=== PATIENT | female | born 1970 | race Two or more races ===

== ENCOUNTER 2020-04-09 15:56 | Inpatient (IN) | payer OTHER ==
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
[2020-04-09] MEDS ORDERED: ONDANSETRON *ODT* 4 MG TABLET SL PRN (17:50)
[2020-04-09] MEDS ORDERED: MAGNESIUM CITRATE 300 ML BOTTLE PO PRN (17:50)
[2020-04-09] MEDS ORDERED: MAGNESIUM HYDROX 2400MG/30ML ORAL SUSPENSION 30 ML CUP PO PRN (17:50)
[2020-04-09] MEDS ORDERED: MENTHOL/PHENOL 1 EACH UD MM PRN (17:50)
[2020-04-09] MEDS ORDERED: ACETAMINOPHEN 325 MG TABLET (FP) PO PRN ×2 (17:50)
[2020-04-09] MEDS ORDERED: IBUPROFEN 400 MG TABLET (FP) PO PRN (17:50)
[2020-04-09] MEDS ORDERED: NICOTINE POLACRILEX 2 MG GUM BUC PRN (17:50)
[2020-04-09] MEDS ORDERED: MAG HYDROX/AL HYDROX/SIMETH 30 ML UNIT-DOSE CUP PO PRN (17:50)
[2020-04-09] MEDS ORDERED: chlordiazePOXIDE HCL 25 MG CAPSULE PO PRN (17:52)
[2020-04-09 18:00] VITALS: BMI 29.4
[2020-04-09] MEDS ORDERED: ALBUTEROL SO4 HFA INHALER IH PRN (18:00)
[2020-04-09] MEDS: chlordiazePOXIDE HCL 25 MG CAPSULE PO SCH ×2 (18:49→22:51)
[2020-04-09] MEDS: metFORMIN HCL 500 MG TABLET (FP) PO SCH (20:02)
[2020-04-09] MEDS: MELATONIN 5 MG TABLETS PO SCH (22:51)
[2020-04-09] MEDS: THIAMINE HCL 100 MG TABLET (FP) PO SCH (22:51)
[2020-04-09] MEDS: METHOCARBAMOL 500 MG TABLET PO PRN (22:51)
[2020-04-10] MEDS: metFORMIN HCL 500 MG TABLET (FP) PO SCH ×2 (06:46→16:57)
[2020-04-10] MEDS: chlordiazePOXIDE HCL 25 MG CAPSULE PO SCH ×4 (06:46→22:27)
--- NOTE | 2020-04-10 09:54 | EKG ---
Test Reason : Blood Pressure : / mmHG Vent. Rate : 066 BPM Atrial Rate : 066 BPM P-R Int : 104 ms QRS Dur : 074 ms QT Int : 396 ms P-R-T Axes : 077 056 057 degrees QTc Int : 415 ms SINUS RHYTHM WITH SHORT MS OTHERWISE NORMAL ECG NO PREVIOUS ECGS AVAILABLE Confirmed by WILMAR MORRISON, EFREN ([id number]) on 04/10/2020 9:53:55 AM Referred By: Confirmed By:EFREN URBAN MD
[2020-04-10] MEDS: PRENATAL VITAMINS W/ FOLIC ACID TABLET (FP) PO SCH (10:22)
[2020-04-10] MEDS: BISMUTH SUBSALICYLATE 524 MG/30 ML UD PO PRN ×2 (10:22→13:11)
[2020-04-10 11:05] LABS: ALBUMIN 2.9 g/dl (3.4-5.0); BILIRUBIN,TOTAL 0.6 mg/dL (0.2-1); BLOOD UREA NITROGEN 10.3 mg/dL (7-18); CALCIUM 8.6 mg/dL (8.5-10.1); CREATININE 0.7 mg/dL (0.55-1.3); POTASSIUM 3.6 mmol/L (3.5-5.1); TOT PROT 5.7 g/dl (6.4-8.2)
[2020-04-10 11:10] LABS: HEMATOCRIT 40.7 % (32.4-45.2); HEMOGLOBIN 13.4 GM/dL (10.7-15.3); MCH 32.8 pg (25.7-33.7); MCHC 32.9 g/dl (32.0-36.0); MEAN CELL VOLUME 99.9 fl (80-96); MEAN PLT VOLUME 9.5 fl (7.5-11.1); PLATELET COUNT 251 K/MM3 (134-434); RBC 4.08 M/mm3 (3.60-5.2); RDW 13.1 % (11.6-15.6); WHITE BLOOD COUNT 6.2 K/mm3 (4.0-10.0)
--- NOTE | 2020-04-10 11:59 | PN ---
S CIWA - CIWA Score Nausea/Vomitin Muscle Tremors: 2 Anxiety: 2 Agitation: 2 Paroxysmal Sweats: No Perspiration Orientation: 0-Oriented Tacttile Disturbances: 1-Very Mild Itch/Numbness Auditory Disturbances: 0-None Visual Disturbances: 0-None Headache: 2-Mild CIWA-Ar Total Score: 11 S Progress Note (SOAP) Subjective: alert,irritable,anxious,interrupted sleep,tremor,aching pain Objective: 04/10/20 17:19 Laboratory Last Values WBC 6.2 K/mm3 (4.0-10.0) 04/10/20 08:00 RBC 4.08 M/mm3 (3.60-5.2) 04/10/20 08:00 Hgb 13.4 GM/dL (10.7-15.3) 04/10/20 08:00 Hct 40.7 % (32.4-45.2) 04/10/20 08:00 MCV 99.9 fl (80-96) H 04/10/20 08:00 MCH 32.8 pg (25.7-33.7) 04/10/20 08:00 MCHC 32.9 g/dl (32.0-36.0) 04/10/20 08:00 RDW 13.1 % (11.6-15.6) 04/10/20 08:00 Plt Count 251 K/MM3 (134-434) D 04/10/20 08:00 MPV 9.5 fl (7.5-11.1) 04/10/20 08:00 Sodium 140 mmol/L (136-145) 04/10/20 08:00 Potassium 3.6 mmol/L (3.5-5.1) 04/10/20 08:00 Chloride 105 mmol/L (98-107) 04/10/20 08:00 Carbon Dioxide 31 mmol/L (21-32) 04/10/20 08:00 Anion Gap 4 MMOL/L (8-16) L 04/10/20 08:00 BUN 10.3 mg/dL (7-18) 04/10/20 08:00 Creatinine 0.7 mg/dL (0.55-1.3) 04/10/20 08:00 Est GFR (CKD-EPI)AfAm 116.27 04/10/20 08:00 Est GFR (CKD-EPI)NonAf 100.32 04/10/20 08:00 POC Glucometer 137 UNITS (80-120) 04/10/20 16:26 Random Glucose 154 mg/dL (74-106) H 04/10/20 08:00 Calcium 8.6 mg/dL (8.5-10.1) 04/10/20 08:00 Total Bilirubin 0.6 mg/dL (0.2-1) 04/10/20 08:00 AST 22 U/L (15-37) 04/10/20 08:00 ALT 21 U/L (13-61) 04/10/20 08:00 Alkaline Phosphatase 66 U/L (45-117) 04/10/20 08:00 Total Protein 5.7 g/dl (6.4-8.2) L 04/10/20 08:00 Albumin 2.9 g/dl (3.4-5.0) L 04/10/20 08:00 POC Urine HCG, Qual Negative 04/09/20 17:55 Syphilis Serology Non-reactive (NONREACTIVE) 04/10/20 08:00 Assessment: 04/10/20 17:20 withdrawal symptom Plan: continue detox libriumregimen,bm monitoring
[2020-04-10] MEDS ORDERED: PNEUMOC 13-VAL CONJ-DIP CRM/PF 0.5 ML DISP.SYRIN IM ONE (12:00)
--- NOTE | 2020-04-10 17:09 | CONSULT ---
[facility] Psychiatric Consult - Data Date of interview: 04/10/20 Admission source: [facility] Identifying data: Climatologist approached patient on several occasions but patient was difficult to awaken. Patient observed to be somnolent, breathing, and snoring loudly.
[2020-04-10] MEDS: THIAMINE HCL 100 MG TABLET (FP) PO SCH (22:27)
[2020-04-10] MEDS: MELATONIN 5 MG TABLETS PO SCH (22:27)
[2020-04-10] MEDS: METHOCARBAMOL 500 MG TABLET PO PRN (22:28)
[2020-04-11] MEDS: metFORMIN HCL 500 MG TABLET (FP) PO SCH ×2 (07:38→18:04)
[2020-04-11] MEDS: chlordiazePOXIDE HCL 25 MG CAPSULE PO SCH ×4 (07:40→22:45)
--- NOTE | 2020-04-11 09:28 | PN ---
[facility] CIWA - CIWA Score Nausea/Vomitin-Mild Nausea/No Vomiting Muscle Tremors: 1-None Visible, but [place] Anxiety: 1-Mildly Anxious Agitation: 0-Normal Activity Paroxysmal Sweats: 1-Minimal Palms Moist Orientation: 0-Oriented Tacttile Disturbances: 0-None Auditory Disturbances: 0-None Visual Disturbances: 0-None Headache: 0-None Present CIWA-Ar Total Score: 4 BHS Progress Note (SOAP) Subjective: Patient was examined by bedside. Patient complains of mild nausea and anxiety but otherwise feels well. Objective: 04/11/20 09:26 PE: General: No acute distress, alert and awake MSK: gait normal, pelvis stable, normal range of motion Skin: No lesions or abrasions skin color normal. MS: responds appropriately to questions, oriented x3, pleasant demeanor Last Vital Signs Temp Pulse Resp BP Pulse Ox 97.3 F L 65 18 112/64 100 04/11/20 08:53 04/11/20 08:53 04/11/20 08:53 04/11/20 08:53 04/11/20 08:53 CBC,CMP WBC 6.2 K/mm3 (4.0-10.0) 04/10/20 08:00 RBC 4.08 M/mm3 (3.60-5.2) 04/10/20 08:00 Hgb 13.4 GM/dL (10.7-15.3) 04/10/20 08:00 Hct 40.7 % (32.4-45.2) 04/10/20 08:00 MCV 99.9 fl (80-96) H 04/10/20 08:00 MCH 32.8 pg (25.7-33.7) 04/10/20 08:00 MCHC 32.9 g/dl (32.0-36.0) 04/10/20 08:00 RDW 13.1 % (11.6-15.6) 04/10/20 08:00 Plt Count 251 K/MM3 (134-434) D 04/10/20 08:00 MPV 9.5 fl (7.5-11.1) 04/10/20 08:00 Sodium 140 mmol/L (136-145) 04/10/20 08:00 Potassium 3.6 mmol/L (3.5-5.1) 04/10/20 08:00 Chloride 105 mmol/L (98-107) 04/10/20 08:00 Carbon Dioxide 31 mmol/L (21-32) 04/10/20 08:00 Anion Gap 4 MMOL/L (8-16) L 04/10/20 08:00 BUN 10.3 mg/dL (7-18) 04/10/20 08:00 Creatinine 0.7 mg/dL (0.55-1.3) 04/10/20 08:00 Est GFR (CKD-EPI)AfAm 116.27 04/10/20 08:00 Est GFR (CKD-EPI)NonAf 100.32 04/10/20 08:00 POC Glucometer 80 UNITS (80-120) 04/11/20 07:30 Random Glucose 154 mg/dL (74-106) H 04/10/20 08:00 Calcium 8.6 mg/dL (8.5-10.1) 04/10/20 08:00 Total Bilirubin 0.6 mg/dL (0.2-1) 04/10/20 08:00 AST 22 U/L (15-37) 04/10/20 08:00 ALT 21 U/L (13-61) 04/10/20 08:00 Alkaline Phosphatase 66 U/L (45-117) 04/10/20 08:00 Total Protein 5.7 g/dl (6.4-8.2) L 04/10/20 08:00 Albumin 2.9 g/dl (3.4-5.0) L 04/10/20 08:00 Current Medications Generic Name Dose Route Start Last Admin Trade Name Freq PRN Reason Stop Dose Admin Acetaminophen 650 mg 04/09/20 17:50 Tylenol - PO Q6H PRN PAIN LEVEL 4 - 6 Acetaminophen 650 mg 04/09/20 17:50 Tylenol - PO Q6H PRN FEVER Al Hydroxide/Mg Hydroxide 30 ml 04/09/20 17:50 Mylanta Oral Suspension - PO Q6H PRN DYSPEPSIA Albuterol Sulfate 2 puff 04/09/20 18:00 Ventolin Hfa Inhaler - IH Q4H PRN SHORTNESS OF BREATH Bismuth Subsalicylate 524 mg 04/09/20 17:50 04/10/20 13:11 Pepto-Bismol - PO 524 mg Q1H PRN Administration DIARRHEA Chlordiazepoxide HCl 25 mg 04/11/20 05:00 04/11/20 07:40 Librium - PO 04/11/20 23:01 Not Given [id number] PEYTON Chlordiazepoxide HCl 25 mg 04/09/20 17:52 Librium - PO 04/11/20 23:59 Q4H PRN WITHDRAWAL(CONT SUBST) Chlordiazepoxide HCl 10 mg 04/12/20 05:00 Librium - PO 04/12/20 23:01 [id number] PEYTON Chlordiazepoxide HCl 10 mg 04/13/20 05:00 Librium - PO 04/13/20 17:01 Q12H PEYTON Chlordiazepoxide HCl 10 mg 04/12/20 00:00 Librium - PO 04/13/20 00:00 Q4H PRN WITHDRAWAL(CONT SUBST) Chlordiazepoxide HCl 10 mg 04/14/20 05:00 Librium - PO 04/14/20 05:01 ONCE@0500 ONE Eucalyptus/Menthol/Phenol/Sorbitol 1 each 04/09/20 17:50 Cepastat Lozenge - MM 04/15/20 17:50 Q4H PRN SORE THROAT Hydroxyzine Pamoate 25 mg 04/09/20 17:50 Vistaril - PO 04/15/20 17:51 Q4H PRN ANXIETY Ibuprofen 400 mg 04/09/20 17:50 Motrin - PO Q6H PRN PAIN LEVEL 1 - 3 Magnesium Citrate 300 ml 04/09/20 17:50 Citroma - PO Q48H PRN CONSTIPATION Magnesium Hydroxide 30 ml 04/09/20 17:50 Milk Of Magnesia - PO PRN PRN CONSTIPATION Melatonin 5 mg 04/09/20 22:00 04/10/20 22:27 Melatonin PO 5 mg HS PEYTON Administration Metformin HCl 500 mg 04/09/20 19:45 04/11/20 07:38 Glucophage - PO 500 mg BIDAC PEYTON Administration Methocarbamol 500 mg 04/09/20 17:50 04/10/20 22:28 Robaxin - PO 04/15/20 17:50 500 mg Q6H PRN Administration MUSCLE SPASMS Nicotine Polacrilex 2 mg 04/09/20 17:50 Nicorette Gum - BUC Q2H PRN NICOTINE REPLACEMENT RX Ondansetron HCl 4 mg 04/09/20 17:50 Zofran Odt - SL Q8H PRN Nausea/Vomiting Multivit/Folic Acid/Iron 1 tab 04/10/20 10:00 04/10/20 10:22 Vitamins (Sjr) - PO 1 tab DAILY PEYTON Administration Thiamine HCl 100 mg 04/09/20 22:00 04/10/20 22:27 Vitamin B1 - PO 100 mg HS PEYTON Administration Discontinued Medications Generic Name Dose Route Start Last Admin Trade Name Freq PRN Reason Stop Dose Admin Chlordiazepoxide HCl 50 mg 04/09/20 17:00 04/10/20 22:27 Librium - PO 04/10/20 23:01 50 mg [id number] PEYTON Administration Pneumococcal 13-Valent Conj Vacc 0.5 ml 04/10/20 12:00 04/10/20 13:07 Prevnar 13 Syringe - IM 04/10/20 12:01 0.5 ml .ONCE ONE Administration Tuberculin PPD 5 units 04/09/20 17:50 04/09/20 18:52 Tubersol ([facility] Only) 5ml Vial ID 04/09/20 17:51 0.1 ml ONCE ONE Administration Assessment: 04/11/20 09:26 Patient is in detox due to alcohol, on day 1 on a librium protocol Plan: Plan: Continue librium protocol.
[2020-04-11] MEDS: PRENATAL VITAMINS W/ FOLIC ACID TABLET (FP) PO SCH (10:23)
[2020-04-11] MEDS: METHOCARBAMOL 500 MG TABLET PO PRN (10:25)
[2020-04-11] MEDS ORDERED: INSULIN (NOVOLOG) ASPART 100 UNITS/ML 10ML VIAL SQ ONE (17:24)
--- NOTE | 2020-04-11 17:29 | PN ---
S Progress Note Note: Patient's blood sugar is 341mg/dl. patient is asymptomatic Glucose Results-Entire Visit 04/10/20 08:00 Random Glucose 154 mg/dL H mg/dL (74-106) BGM Results Entire Visit 04/09/20 04/10/20 04/10/20 18:23 06:48 16:26 POC Glucometer 113 UNITS UNITS 115 UNITS UNITS 137 UNITS UNITS (80-120) (80-120) (80-120) 04/11/20 04/11/20 07:30 16:16 POC Glucometer 80 UNITS UNITS 341 UNITS UNITS (80-120) (80-120) Action: Insulin Novolog 6 units SQ ordered
[2020-04-11] MEDS ORDERED: INSULIN SLIDING SCALE (NOVOLOG) 1 VIAL SQ ONE (17:34)
[2020-04-11] MEDS: THIAMINE HCL 100 MG TABLET (FP) PO SCH (22:44)
[2020-04-11] MEDS: MELATONIN 5 MG TABLETS PO SCH (22:44)
[2020-04-12] MEDS ORDERED: chlordiazePOXIDE HCL 10 MG CAPSULE PO PRN
[2020-04-12] MEDS: chlordiazePOXIDE HCL 10 MG CAPSULE PO SCH ×4 (05:57→22:27)
[2020-04-12] MEDS: metFORMIN HCL 500 MG TABLET (FP) PO SCH ×2 (06:01→17:29)
[2020-04-12] MEDS: PRENATAL VITAMINS W/ FOLIC ACID TABLET (FP) PO SCH (10:51)
--- NOTE | 2020-04-12 11:51 | PN ---
S CIWA - CIWA Score Nausea/Vomitin-No Nausea/No Vomiting Muscle Tremors: None Anxiety: 2 Agitation: 0-Normal Activity Paroxysmal Sweats: 2 Orientation: 0-Oriented Tacttile Disturbances: 0-None Auditory Disturbances: 0-None Visual Disturbances: 0-None Headache: 2-Mild CIWA-Ar Total Score: 6 BHS Progress Note (SOAP) Subjective: c/o headache, sweats, and anxiety. Objective: 04/12/20 11:50 Vital Signs 04/12/20 04/12/20 06:37 08:35 Temperature 97.2 F L 98.1 F Pulse Rate 87 100 H Respiratory 16 16 Rate Blood Pressure 117/70 114/69 O2 Sat by Pulse 99 99 Oximetry (%) Laboratory Last Values WBC 6.2 K/mm3 (4.0-10.0) 04/10/20 08:00 RBC 4.08 M/mm3 (3.60-5.2) 04/10/20 08:00 Hgb 13.4 GM/dL (10.7-15.3) 04/10/20 08:00 Hct 40.7 % (32.4-45.2) 04/10/20 08:00 MCV 99.9 fl (80-96) H 04/10/20 08:00 MCH 32.8 pg (25.7-33.7) 04/10/20 08:00 MCHC 32.9 g/dl (32.0-36.0) 04/10/20 08:00 RDW 13.1 % (11.6-15.6) 04/10/20 08:00 Plt Count 251 K/MM3 (134-434) D 04/10/20 08:00 MPV 9.5 fl (7.5-11.1) 04/10/20 08:00 Sodium 140 mmol/L (136-145) 04/10/20 08:00 Potassium 3.6 mmol/L (3.5-5.1) 04/10/20 08:00 Chloride 105 mmol/L (98-107) 04/10/20 08:00 Carbon Dioxide 31 mmol/L (21-32) 04/10/20 08:00 Anion Gap 4 MMOL/L (8-16) L 04/10/20 08:00 BUN 10.3 mg/dL (7-18) 04/10/20 08:00 Creatinine 0.7 mg/dL (0.55-1.3) 04/10/20 08:00 Est GFR (CKD-EPI)AfAm 116.27 04/10/20 08:00 Est GFR (CKD-EPI)NonAf 100.32 04/10/20 08:00 POC Glucometer 115 UNITS (80-120) 04/12/20 05:56 Random Glucose 154 mg/dL (74-106) H 04/10/20 08:00 Calcium 8.6 mg/dL (8.5-10.1) 04/10/20 08:00 Total Bilirubin 0.6 mg/dL (0.2-1) 04/10/20 08:00 AST 22 U/L (15-37) 04/10/20 08:00 ALT 21 U/L (13-61) 04/10/20 08:00 Alkaline Phosphatase 66 U/L (45-117) 04/10/20 08:00 Total Protein 5.7 g/dl (6.4-8.2) L 04/10/20 08:00 Albumin 2.9 g/dl (3.4-5.0) L 04/10/20 08:00 POC Urine HCG, Qual Negative 04/09/20 17:55 Syphilis Serology Non-reactive (NONREACTIVE) 04/10/20 08:00 COVID-19 ([facility]) Not detected (Not Detected) 04/09/20 18:11 Labs noted. Assessment: 04/12/20 11:50 AOX3, in no acute respiratory distress. Full ROM, ambulating in the unit. Withdrawal symptoms. Plan: continue detox.
[2020-04-12] MEDS: MELATONIN 5 MG TABLETS PO SCH (22:27)
[2020-04-12] MEDS: THIAMINE HCL 100 MG TABLET (FP) PO SCH (22:27)
[2020-04-13] MEDS: chlordiazePOXIDE HCL 10 MG CAPSULE PO SCH ×2 (05:42→16:50)
[2020-04-13] MEDS: metFORMIN HCL 500 MG TABLET (FP) PO SCH ×2 (06:20→16:50)
--- NOTE | 2020-04-13 09:58 | PN ---
S CIWA - CIWA Score Nausea/Vomitin-No Nausea/No Vomiting Muscle Tremors: 1-None Visible, but [place] Anxiety: 1-Mildly Anxious Agitation: 0-Normal Activity Paroxysmal Sweats: No Perspiration Orientation: 0-Oriented Tacttile Disturbances: 0-None Auditory Disturbances: 0-None Visual Disturbances: 0-None Headache: 1-Very Mild CIWA-Ar Total Score: 3 BHS Progress Note (SOAP) Subjective: 49 years old female was admitted on 04/09/20 for alcohol withdrawal sx management treating with [facility] long history of diabetes treated with metform 500mg po bid ac feels better today discussing aftercare with staff ms chaudhari [facility] is fine with her Objective: 04/13/20 09:59 Vital Signs - 24 hr 04/12/20 04/12/20 04/12/20 13:30 16:50 20:48 Temperature 96.8 F L 97.5 F L 97.5 F L Pulse Rate 84 83 79 Respiratory 18 16 16 Rate Blood Pressure 106/59 L 119/71 117/70 O2 Sat by Pulse 98 98 Oximetry (%) 04/13/20 04/13/20 06:32 08:54 Temperature 96.9 F L 97.1 F L Pulse Rate 82 70 Respiratory 16 18 Rate Blood Pressure 118/71 105/61 O2 Sat by Pulse 99 99 Oximetry (%) Laboratory Tests 04/09/20 04/09/20 04/09/20 17:55 18:11 18:23 WBC RBC Hgb Hct MCV MCH MCHC RDW Plt Count MPV Sodium Potassium Chloride Carbon Dioxide Anion Gap BUN Creatinine Est GFR (CKD-EPI)AfAm Est GFR (CKD-EPI)NonAf POC Glucometer 113 Random Glucose Calcium Total Bilirubin AST ALT Alkaline Phosphatase Total Protein Albumin POC Urine HCG, Qual Negative Syphilis Serology COVID-19 (ZO) Not detected 04/10/20 04/10/20 04/10/20 06:48 08:00 08:00 WBC 6.2 RBC 4.08 Hgb 13.4 Hct 40.7 MCV 99.9 H MCH 32.8 MCHC 32.9 RDW 13.1 Plt Count 251 D MPV 9.5 Sodium Potassium Chloride Carbon Dioxide Anion Gap BUN Creatinine Est GFR (CKD-EPI)AfAm Est GFR (CKD-EPI)NonAf POC Glucometer 115 Random Glucose Calcium Total Bilirubin AST ALT Alkaline Phosphatase Total Protein Albumin POC Urine HCG, Qual Syphilis Serology Non-reactive COVID-19 (ZO) 04/10/20 04/10/20 04/11/20 08:00 16:26 07:30 WBC RBC Hgb Hct MCV MCH MCHC RDW Plt Count MPV Sodium 140 Potassium 3.6 Chloride 105 Carbon Dioxide 31 Anion Gap 4 L BUN 10.3 Creatinine 0.7 Est GFR (CKD-EPI)AfAm 116.27 Est GFR (CKD-EPI)NonAf 100.32 POC Glucometer 137 80 Random Glucose 154 H Calcium 8.6 Total Bilirubin 0.6 AST 22 ALT 21 Alkaline Phosphatase 66 Total Protein 5.7 L Albumin 2.9 L POC Urine HCG, Qual Syphilis Serology COVID-19 (ZO) 04/11/20 04/12/20 04/12/20 16:16 05:56 16:29 WBC RBC Hgb Hct MCV MCH MCHC RDW Plt Count MPV Sodium Potassium Chloride Carbon Dioxide Anion Gap BUN Creatinine Est GFR (CKD-EPI)AfAm Est GFR (CKD-EPI)NonAf POC Glucometer 341 115 170 Random Glucose Calcium Total Bilirubin AST ALT Alkaline Phosphatase Total Protein Albumin POC Urine HCG, Qual Syphilis Serology COVID-19 (ZO) 04/13/20 05:41 WBC RBC Hgb Hct MCV MCH MCHC RDW Plt Count MPV Sodium Potassium Chloride Carbon Dioxide Anion Gap BUN Creatinine Est GFR (CKD-EPI)AfAm Est GFR (CKD-EPI)NonAf POC Glucometer 139 Random Glucose Calcium Total Bilirubin AST ALT Alkaline Phosphatase Total Protein Albumin POC Urine HCG, Qual Syphilis Serology COVID-19 (ZO) medical history of diabetes encourage weight loss with dietary regiment as part of diabetes management 04/13/20 10:02 Assessment: 04/13/20 10:03 alcohol withdrawal Plan: librium regiment
[2020-04-13] MEDS: PRENATAL VITAMINS W/ FOLIC ACID TABLET (FP) PO SCH (10:27)
[2020-04-13] MEDS: hydrOXYzine PAMOATE 25 MG CAPSULE (FP) PO PRN ×2 (16:51→22:03)
[2020-04-13] MEDS: THIAMINE HCL 100 MG TABLET (FP) PO SCH (22:03)
[2020-04-13] MEDS: MELATONIN 5 MG TABLETS PO SCH (22:03)
[2020-04-14] MEDS ORDERED: chlordiazePOXIDE HCL 10 MG CAPSULE PO ONE (05:00)
[2020-04-14] MEDS: metFORMIN HCL 500 MG TABLET (FP) PO SCH (05:59)
[2020-04-14 06:44] VITALS: TEMP 97.1
[2020-04-14] MEDS: PRENATAL VITAMINS W/ FOLIC ACID TABLET (FP) PO SCH (09:06)
[2020-04-14 09:21] VITALS: BP 106/64; PULSE 81
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
== END 2020-04-14 13:02 | disposition other institution (70) | DRG 774 ==
LOC: YASAS 15:56 → Y3N 18:06
PROVIDERS: ADMIT Allergy & Immunology; ATTEND Allergy & Immunology
PROC: HZ2ZZZZ Detoxification Services for Substance Abuse Treatment (ICD-10-PCS; principal; 2020-04-09)
DX: F10.230 Alcohol dependence with withdrawal, uncomplicated (principal); F14.20 Cocaine dependence, uncomplicated; F12.20 Cannabis dependence, uncomplicated; F17.210 Nicotine dependence, cigarettes, uncomplicated; F31.9 Bipolar disorder, unspecified; F19.24 Other psychoactive substance dependence with psychoactive substance-induced mood disorder; E11.9 Type 2 diabetes mellitus without complications; Z79.84 Long term (current) use of oral hypoglycemic drugs; J45.909 Unspecified asthma, uncomplicated; Z86.69 Personal history of other diseases of the nervous system and sense organs; Z91.5 Personal history of self-harm; Z91.013 Allergy to seafood
CPT/HCPCS: 36415; 80053; 81025; 82962; 85027; 86780; 90670; 93005; 93010; U0003

== ENCOUNTER 2020-04-14 13:06 | Inpatient (IN) | payer OTHER ==
[2020-04-14] MEDS ORDERED: MAGNESIUM CITRATE 300 ML BOTTLE PO PRN (14:19)
[2020-04-14] MEDS ORDERED: P-EPHED 60MG/TRIPROLIDI 2.5MG TABLET PO PRN (14:19)
[2020-04-14] MEDS ORDERED: LOPERAMIDE HCL 2 MG CAPSULE PO PRN (14:19)
[2020-04-14] MEDS ORDERED: guaiFENesin 200 MG/10 ML 10 ML UNIT-DOSE CUPS PO PRN (14:19)
[2020-04-14] MEDS ORDERED: MAGNESIUM HYDROX 2400MG/30ML ORAL SUSPENSION 30 ML CUP PO PRN (14:19)
[2020-04-14] MEDS ORDERED: NICOTINE POLACRILEX 2 MG GUM BUC PRN (14:19)
--- NOTE | 2020-04-14 14:19 | HP ---
[facility] Re[facility] Assess/Revision - Admission History Admitted to Rehab from: [facility] Date of Admission to Rehab: 04/14/20 - Vital signs Vital Signs: Vital Signs Period Temp Pulse Resp BP Sys/Pro Pulse Ox Last 24 Hr 97.1 F 80 18 108/69 98 - Findings Detox History & Physical reviewed: Yes Concur with findings: Yes Comments/Additional Findings: tranferred fromd detox to rehab admission as per protocol Inpatient Rehab Admission - Rehab Decision to Admit Inpatient rehab admission?: Yes - Initial Determination Are CD services needed?: Yes Free of communicable disease: Yes Not in need of hospitalization: Yes - Rehab Admission Criteria Previous failed treatment: Yes Poor recovery environment: Yes Comorbidities: Yes Lacks judgement: Yes Patient is meeting Inpatient Rehab admission criteria:: Yes
[2020-04-14] MEDS ORDERED: ALBUTEROL SO4 HFA INHALER IH PRN (14:23)
[2020-04-14] MEDS: metFORMIN HCL 500 MG TABLET (FP) PO SCH (17:07)
[2020-04-14] MEDS: THIAMINE HCL 100 MG TABLET (FP) PO SCH (21:36)
[2020-04-14] MEDS: MELATONIN 5 MG TABLETS PO SCH (21:37)
[2020-04-15] MEDS: metFORMIN HCL 500 MG TABLET (FP) PO SCH ×2 (06:51→16:40)
--- NOTE | 2020-04-15 09:00 | CONSULT ---
[facility] Psychiatric Consult - Data Date of interview: 04/15/20 Admission source: [facility] Identifying data: Patient is a 49 year old single female, mother of two, unemployed, domiciled, and is supported by SSI benefits. This is patient's first admission to rehab at [facility]. Patient admitted to for alcohol dependence. Substance Abuse History: Smoking Cessation. Smoking history: Current every day smoker. Have you smoked in the past 12 months: Yes. Aproximately how many cigarettes per day: 5. Hx Chewing Tobacco Use: No. Initiated information on smoking cessation: Yes. 'Breaking Loose' booklet given: 04/09/20. - Substances abused. Alcohol. Substance route: Oral. Frequency: Daily. Amount used: 5 pints of vodka. Age of first use: 10. Date of last use: 04/09/20. Crack. Substance route: Smoking. Frequency: Daily. Amount used: 500 $. Age of first use: 14. Date of last use: 04/08/20. Marijuana/Hashish. Substance route: Smoking. Frequency: Daily. Amount used: 1 BAG. Age of first use: 10. Date of last use: 04/07/20 Medical History: Asthma, diabetes Psychiatric History: Ms. Mercado first psychiatric contact was at 14 years of age after she was admitted to [facility] for onset disturbances of auditory hallucination and self injurious behavior via cutting on her left and right forearm. States that she was diagnosed with bipolar disorder, schizophrenia and treated with psychotropic medications. Ms. Mercado reports a history of multiple psychiatric hospitalizations including but not limited to [facility], [facility], [facility], and most recently at [facility] two months ago due to auditory hallucinations and self mutilation of cutting. Ms. Mercado states that she was prescribed Depakote 500mg BID + Risperdal (unsure of dose) + Trazodone 100mg HS + Seroquel 100mg HS. Ms. Mercado reports a chronic history of noncompliance to outpatient psychiatric treatment. States that she last took medications two months ago. History of one suicide attempt by cutting her neck at 16 years of age. At present patient denies auditory/ visual hallucination, suicidal/ homicidal ideation, however reports feeling sad. Physical/Sexual Abuse/Trauma History: Not discussed. Mental Status Exam - Mental Status Exam Alert and Oriented to: Time, Place, Person Cognitive Function: Good Patient Appearance: Well Groomed Mood: Withdrawn Affect: Mood Congruent Patient Behavior: Cooperative Speech Pattern: Appropriate Voice Loudness: Normal Thought Process: Intact, Goal Oriented Thought Disorder: Not Present Hallucinations: Denies Suicidal Ideation: Denies Homicidal Ideation: Denies Insight/Judgement: Poor Sleep: Fair Appetite: Fair Muscle strength/Tone: Normal Gait/Station: Normal Psychiatric Findings - Problem List ([place] 1, 2,3) (1) Cannabis dependence Status: Chronic (2) Alcohol dependence Status: Chronic (3) Cocaine dependence Status: Chronic (4) Bipolar disorder Status: Acute (5) Schizoaffective disorder Status: Suspected - Initial Treatment Plan Initial Treatment Plan: Psychoeducation provided. Detoxification in progress. Sales Support Rep called pharmacy on file, [facility] contacted at [phone]. As per pharmacy staff patient is not in the system. Patient informed of information provided by pharmacy and stated, " I'm not sure then which pharmacy that it was." Will order Risperdal 1mg BID + Depakote 250mg daily + 500mg HS + Trazodone 50mg HS. Benefits and side effects discussed. Verbal consent given.
[2020-04-15] MEDS: IBUPROFEN 400 MG TABLET (FP) PO PRN (10:26)
[2020-04-15] MEDS: NICOTINE 7 MG/24 HOURS TOPICAL PATCH TD SCH (10:26)
[2020-04-15] MEDS: PRENATAL VITAMINS W/ FOLIC ACID TABLET (FP) PO SCH (10:26)
[2020-04-15] MEDS: risperiDONE 1 MG TABLET PO SCH ×2 (10:26→21:29)
[2020-04-15] MEDS: DIVALPROEX SODIUM 250 MG TABLET E.C. PO SCH (11:34)
--- NOTE | 2020-04-15 16:59 | PN ---
S Progress Note Note: Pt is a 49 y/o female with a hx of LONA-alcohol,cocaine, marijuana admitted to rehab after completing detox on . PMHX : asthma , DM on Metformin Psych Hx: Bipolar d/o , depression PSHx : C-sx lmp 3 years ago Vital Signs - 24 hr 04/14/20 04/15/20 04/15/20 20:38 06:22 14:48 Temperature 97.3 F L Pulse Rate 64 Respiratory 20 Rate Blood Pressure 125/78 O2 Sat by Pulse 99 99 99 Oximetry (%) alert o x 3 nad oob ambulating with steady gait s/p detox Maintain safety increase po fluids
[2020-04-15] MEDS: THIAMINE HCL 100 MG TABLET (FP) PO SCH (21:29)
[2020-04-15] MEDS: MELATONIN 5 MG TABLETS PO SCH (21:30)
[2020-04-15] MEDS: DIVALPROEX SODIUM 500 MG TABLET E.C. PO SCH (21:31)
[2020-04-15] MEDS: traZODone HCL 50 MG TABLET (FP) PO SCH (21:31)
[2020-04-16] MEDS: IBUPROFEN 400 MG TABLET (FP) PO PRN (06:56)
[2020-04-16] MEDS: metFORMIN HCL 500 MG TABLET (FP) PO SCH ×2 (06:56→16:49)
[2020-04-16] MEDS: PRENATAL VITAMINS W/ FOLIC ACID TABLET (FP) PO SCH (10:28)
[2020-04-16] MEDS: risperiDONE 1 MG TABLET PO SCH ×2 (10:28→21:39)
[2020-04-16] MEDS: NICOTINE 7 MG/24 HOURS TOPICAL PATCH TD SCH (10:28)
[2020-04-16] MEDS: ACETAMINOPHEN 325 MG TABLET (FP) PO PRN (10:30)
[2020-04-16] MEDS: DIVALPROEX SODIUM 250 MG TABLET E.C. PO SCH (10:45)
[2020-04-16] MEDS: hydrOXYzine PAMOATE 25 MG CAPSULE (FP) PO PRN (16:01)
[2020-04-16] MEDS: THIAMINE HCL 100 MG TABLET (FP) PO SCH (21:38)
[2020-04-16] MEDS: DIVALPROEX SODIUM 500 MG TABLET E.C. PO SCH (21:38)
[2020-04-16] MEDS: traZODone HCL 50 MG TABLET (FP) PO SCH (21:38)
[2020-04-16] MEDS: MELATONIN 5 MG TABLETS PO SCH (21:39)
[2020-04-17] MEDS: metFORMIN HCL 500 MG TABLET (FP) PO SCH ×2 (07:12→16:58)
[2020-04-17] MEDS: IBUPROFEN 400 MG TABLET (FP) PO PRN (07:12)
[2020-04-17] MEDS: risperiDONE 1 MG TABLET PO SCH ×2 (10:15→21:37)
[2020-04-17] MEDS: DIVALPROEX SODIUM 250 MG TABLET E.C. PO SCH (10:15)
[2020-04-17] MEDS: NICOTINE 7 MG/24 HOURS TOPICAL PATCH TD SCH (10:16)
[2020-04-17] MEDS: PRENATAL VITAMINS W/ FOLIC ACID TABLET (FP) PO SCH (10:16)
[2020-04-17] MEDS: hydrOXYzine PAMOATE 25 MG CAPSULE (FP) PO PRN (13:43)
[2020-04-17] MEDS: MELATONIN 5 MG TABLETS PO SCH (21:37)
[2020-04-17] MEDS: THIAMINE HCL 100 MG TABLET (FP) PO SCH (21:37)
[2020-04-17] MEDS: DIVALPROEX SODIUM 500 MG TABLET E.C. PO SCH (21:37)
[2020-04-17] MEDS: traZODone HCL 50 MG TABLET (FP) PO SCH (21:37)
[2020-04-18] MEDS: PRENATAL VITAMINS W/ FOLIC ACID TABLET (FP) PO SCH (10:04)
[2020-04-18] MEDS: DIVALPROEX SODIUM 250 MG TABLET E.C. PO SCH (10:04)
[2020-04-18] MEDS: risperiDONE 1 MG TABLET PO SCH ×2 (10:04→21:36)
[2020-04-18] MEDS: metFORMIN HCL 500 MG TABLET (FP) PO SCH ×2 (10:05→17:50)
[2020-04-18] MEDS: NICOTINE 7 MG/24 HOURS TOPICAL PATCH TD SCH (10:05)
[2020-04-18] MEDS: DIVALPROEX SODIUM 500 MG TABLET E.C. PO SCH (21:35)
[2020-04-18] MEDS: MELATONIN 5 MG TABLETS PO SCH (21:36)
[2020-04-18] MEDS: traZODone HCL 50 MG TABLET (FP) PO SCH (21:36)
[2020-04-18] MEDS: THIAMINE HCL 100 MG TABLET (FP) PO SCH (21:36)
[2020-04-19] MEDS: metFORMIN HCL 500 MG TABLET (FP) PO SCH ×2 (06:45→17:05)
[2020-04-19] MEDS: NICOTINE 7 MG/24 HOURS TOPICAL PATCH TD SCH (10:11)
[2020-04-19] MEDS: PRENATAL VITAMINS W/ FOLIC ACID TABLET (FP) PO SCH (10:12)
[2020-04-19] MEDS: risperiDONE 1 MG TABLET PO SCH ×2 (10:12→21:12)
[2020-04-19] MEDS: DIVALPROEX SODIUM 250 MG TABLET E.C. PO SCH (10:12)
[2020-04-19] MEDS: IBUPROFEN 400 MG TABLET (FP) PO PRN (10:13)
[2020-04-19] MEDS: MAG HYDROX/AL HYDROX/SIMETH 30 ML UNIT-DOSE CUP PO PRN (15:06)
[2020-04-19] MEDS: DIVALPROEX SODIUM 500 MG TABLET E.C. PO SCH (21:12)
[2020-04-19] MEDS: THIAMINE HCL 100 MG TABLET (FP) PO SCH (21:12)
[2020-04-19] MEDS: traZODone HCL 50 MG TABLET (FP) PO SCH (21:12)
[2020-04-19] MEDS: MELATONIN 5 MG TABLETS PO SCH (21:13)
[2020-04-20] MEDS: metFORMIN HCL 500 MG TABLET (FP) PO SCH ×2 (07:10→16:57)
[2020-04-20] MEDS: NICOTINE 7 MG/24 HOURS TOPICAL PATCH TD SCH (09:53)
[2020-04-20] MEDS: risperiDONE 1 MG TABLET PO SCH ×2 (09:53→21:18)
[2020-04-20] MEDS: PRENATAL VITAMINS W/ FOLIC ACID TABLET (FP) PO SCH (09:53)
[2020-04-20] MEDS: DIVALPROEX SODIUM 250 MG TABLET E.C. PO SCH (09:53)
[2020-04-20] MEDS: traZODone HCL 50 MG TABLET (FP) PO SCH (21:18)
[2020-04-20] MEDS: THIAMINE HCL 100 MG TABLET (FP) PO SCH (21:18)
[2020-04-20] MEDS: DIVALPROEX SODIUM 500 MG TABLET E.C. PO SCH (21:18)
[2020-04-20] MEDS: MELATONIN 5 MG TABLETS PO SCH (21:19)
[2020-04-21] MEDS: metFORMIN HCL 500 MG TABLET (FP) PO SCH ×2 (06:59→17:02)
[2020-04-21] MEDS: DIVALPROEX SODIUM 250 MG TABLET E.C. PO SCH (09:48)
[2020-04-21] MEDS: PRENATAL VITAMINS W/ FOLIC ACID TABLET (FP) PO SCH (09:48)
[2020-04-21] MEDS: risperiDONE 1 MG TABLET PO SCH ×2 (09:48→21:08)
[2020-04-21] MEDS: NICOTINE 7 MG/24 HOURS TOPICAL PATCH TD SCH (09:48)
[2020-04-21] MEDS: DIVALPROEX SODIUM 500 MG TABLET E.C. PO SCH (21:08)
[2020-04-21] MEDS: traZODone HCL 50 MG TABLET (FP) PO SCH (21:08)
[2020-04-21] MEDS: THIAMINE HCL 100 MG TABLET (FP) PO SCH (21:08)
[2020-04-21] MEDS: IBUPROFEN 400 MG TABLET (FP) PO PRN (21:09)
[2020-04-21] MEDS: MELATONIN 5 MG TABLETS PO SCH (21:10)
[2020-04-22] MEDS: metFORMIN HCL 500 MG TABLET (FP) PO SCH ×2 (06:52→17:03)
[2020-04-22] MEDS: PRENATAL VITAMINS W/ FOLIC ACID TABLET (FP) PO SCH (09:51)
[2020-04-22] MEDS: DIVALPROEX SODIUM 250 MG TABLET E.C. PO SCH (09:51)
[2020-04-22] MEDS: NICOTINE 7 MG/24 HOURS TOPICAL PATCH TD SCH (09:51)
[2020-04-22] MEDS: risperiDONE 1 MG TABLET PO SCH ×2 (09:52→21:25)
[2020-04-22] MEDS: MAG HYDROX/AL HYDROX/SIMETH 30 ML UNIT-DOSE CUP PO PRN (10:52)
[2020-04-22] MEDS: DIVALPROEX SODIUM 500 MG TABLET E.C. PO SCH (21:25)
[2020-04-22] MEDS: MELATONIN 5 MG TABLETS PO SCH (21:25)
[2020-04-22] MEDS: THIAMINE HCL 100 MG TABLET (FP) PO SCH (21:25)
[2020-04-22] MEDS: traZODone HCL 50 MG TABLET (FP) PO SCH (21:25)
[2020-04-22] MEDS: hydrOXYzine PAMOATE 25 MG CAPSULE (FP) PO PRN (21:25)
[2020-04-23] MEDS: metFORMIN HCL 500 MG TABLET (FP) PO SCH ×2 (07:17→16:58)
[2020-04-23] MEDS: DIVALPROEX SODIUM 250 MG TABLET E.C. PO SCH (09:55)
[2020-04-23] MEDS: PRENATAL VITAMINS W/ FOLIC ACID TABLET (FP) PO SCH (09:55)
[2020-04-23] MEDS: risperiDONE 1 MG TABLET PO SCH ×2 (09:55→21:38)
[2020-04-23] MEDS: NICOTINE 7 MG/24 HOURS TOPICAL PATCH TD SCH (09:55)
[2020-04-23] MEDS: IBUPROFEN 400 MG TABLET (FP) PO PRN (09:56)
[2020-04-23] MEDS: MELATONIN 5 MG TABLETS PO SCH (21:38)
[2020-04-23] MEDS: traZODone HCL 50 MG TABLET (FP) PO SCH (21:38)
[2020-04-23] MEDS: DIVALPROEX SODIUM 500 MG TABLET E.C. PO SCH (21:38)
[2020-04-23] MEDS: THIAMINE HCL 100 MG TABLET (FP) PO SCH (21:39)
[2020-04-24] MEDS: metFORMIN HCL 500 MG TABLET (FP) PO SCH ×2 (06:32→17:01)
[2020-04-24] MEDS: risperiDONE 1 MG TABLET PO SCH ×2 (09:41→21:07)
[2020-04-24] MEDS: DIVALPROEX SODIUM 250 MG TABLET E.C. PO SCH (09:41)
[2020-04-24] MEDS: NICOTINE 7 MG/24 HOURS TOPICAL PATCH TD SCH (09:41)
[2020-04-24] MEDS: PRENATAL VITAMINS W/ FOLIC ACID TABLET (FP) PO SCH (09:41)
[2020-04-24] MEDS: IBUPROFEN 400 MG TABLET (FP) PO PRN (09:42)
[2020-04-24] MEDS: hydrOXYzine PAMOATE 25 MG CAPSULE (FP) PO PRN (11:10)
[2020-04-24] MEDS: DIVALPROEX SODIUM 500 MG TABLET E.C. PO SCH (21:07)
[2020-04-24] MEDS: traZODone HCL 50 MG TABLET (FP) PO SCH (21:07)
[2020-04-24] MEDS: MELATONIN 5 MG TABLETS PO SCH (21:07)
[2020-04-24] MEDS: THIAMINE HCL 100 MG TABLET (FP) PO SCH (21:08)
[2020-04-25] MEDS: metFORMIN HCL 500 MG TABLET (FP) PO SCH ×2 (06:41→16:54)
[2020-04-25] MEDS: ACETAMINOPHEN 325 MG TABLET (FP) PO PRN (06:42)
[2020-04-25] MEDS: risperiDONE 1 MG TABLET PO SCH ×2 (09:53→21:21)
[2020-04-25] MEDS: DIVALPROEX SODIUM 250 MG TABLET E.C. PO SCH (09:53)
[2020-04-25] MEDS: NICOTINE 7 MG/24 HOURS TOPICAL PATCH TD SCH (09:54)
[2020-04-25] MEDS: PRENATAL VITAMINS W/ FOLIC ACID TABLET (FP) PO SCH (09:54)
[2020-04-25] MEDS: IBUPROFEN 400 MG TABLET (FP) PO PRN (09:55)
[2020-04-25] MEDS: traZODone HCL 50 MG TABLET (FP) PO SCH (21:21)
[2020-04-25] MEDS: MELATONIN 5 MG TABLETS PO SCH (21:21)
[2020-04-25] MEDS: THIAMINE HCL 100 MG TABLET (FP) PO SCH (21:21)
[2020-04-25] MEDS: DIVALPROEX SODIUM 500 MG TABLET E.C. PO SCH (21:21)
[2020-04-26] MEDS: metFORMIN HCL 500 MG TABLET (FP) PO SCH ×2 (07:07→16:30)
[2020-04-26] MEDS: DIVALPROEX SODIUM 250 MG TABLET E.C. PO SCH (09:17)
[2020-04-26] MEDS: risperiDONE 1 MG TABLET PO SCH ×2 (09:17→21:50)
[2020-04-26] MEDS: NICOTINE 7 MG/24 HOURS TOPICAL PATCH TD SCH (09:17)
[2020-04-26] MEDS: PRENATAL VITAMINS W/ FOLIC ACID TABLET (FP) PO SCH (09:17)
[2020-04-26] MEDS: DIVALPROEX SODIUM 500 MG TABLET E.C. PO SCH (21:50)
[2020-04-26] MEDS: traZODone HCL 50 MG TABLET (FP) PO SCH (21:50)
[2020-04-26] MEDS: THIAMINE HCL 100 MG TABLET (FP) PO SCH (21:51)
[2020-04-26] MEDS: hydrOXYzine PAMOATE 25 MG CAPSULE (FP) PO PRN (21:52)
[2020-04-26] MEDS: MELATONIN 5 MG TABLETS PO SCH (21:52)
[2020-04-27] MEDS: metFORMIN HCL 500 MG TABLET (FP) PO SCH ×2 (07:02→17:01)
[2020-04-27] MEDS: PRENATAL VITAMINS W/ FOLIC ACID TABLET (FP) PO SCH (09:15)
[2020-04-27] MEDS: DIVALPROEX SODIUM 250 MG TABLET E.C. PO SCH (09:15)
[2020-04-27] MEDS: risperiDONE 1 MG TABLET PO SCH ×2 (09:15→21:32)
[2020-04-27] MEDS: NICOTINE 7 MG/24 HOURS TOPICAL PATCH TD SCH (09:15)
--- NOTE | 2020-04-27 09:37 | PN ---
[facility] Progress Note Note: Patient is scheduled for discharge tomorrow. Scripts for 30 days supply of medications(Risperdal 1 mg/bid, depakote 250 mg/day & 500 mg/hs, Trazadone 50 mg/hs) will be electronically transmitted to [facility], [address] [place] [address]
[2020-04-27] MEDS: traZODone HCL 50 MG TABLET (FP) PO SCH (21:32)
[2020-04-27] MEDS: THIAMINE HCL 100 MG TABLET (FP) PO SCH (21:32)
[2020-04-27] MEDS: MELATONIN 5 MG TABLETS PO SCH (21:32)
[2020-04-27] MEDS: DIVALPROEX SODIUM 500 MG TABLET E.C. PO SCH (21:32)
[2020-04-28] MEDS: metFORMIN HCL 500 MG TABLET (FP) PO SCH (06:57)
[2020-04-28 07:15] VITALS: BP 112/75; PULSE 91; TEMP 97.8
--- NOTE | 2020-04-28 12:31 | DS ---
[facility] Rehab Discharge Summary - [facility] Rehab Discharge Summary Admission Date: 04/14/20 Discharge Date: 04/28/20 - History Present History: Alcohol dependence, Cannabis dependence, Cocaine dependence Pertinent Past History: Asthma DM Obesity Bipolar Disorder - Discharge Physical Exam Vital Signs: Vital Signs Temperature 97.8 F 04/28/20 07:14 Pulse Rate 91 H 04/28/20 07:14 Respiratory Rate 18 04/28/20 07:14 Blood Pressure 112/75 04/28/20 07:14 O2 Sat by Pulse Oximetry (%) 98 04/28/20 07:14 General:Alert o x 3,oob with steady gait,denies s/h/i Head:normocephalic, eomi,shawna Neck:supple, no jvd cardiac:s1 s2,rrr lungs:ctab abdomen:soft, +bs,nt,nd MSK:Active FROM, all limbs. No edema skin:warm, intact Pertinent Admission Physical Exam Findings: Laboratory Tests 04/14/20 04/15/20 04/15/20 17:06 06:50 16:56 POC Glucometer 190 83 127 04/16/20 04/16/20 04/17/20 07:02 16:49 07:11 POC Glucometer 133 103 130 04/17/20 04/19/20 04/19/20 16:57 06:45 17:04 POC Glucometer 114 147 96 04/20/20 04/20/20 04/21/20 07:09 16:56 06:59 POC Glucometer 108 188 103 04/21/20 04/22/20 04/22/20 17:01 06:52 17:02 POC Glucometer 182 105 127 04/23/20 04/23/20 04/24/20 07:17 16:58 06:32 POC Glucometer 93 91 84 04/24/20 04/25/20 04/25/20 17:01 06:40 16:53 POC Glucometer 116 97 133 04/26/20 04/26/20 04/27/20 07:06 16:29 07:01 POC Glucometer 96 84 102 04/27/20 04/28/20 17:00 06:57 POC Glucometer 120 96 - Treatment Discharge Condition: Discharge condition good, Rehabilitated safely, Responded well, Outpatient referral accepted Hospital Course: Pt completed rehab and discharged today. Accepted CD aftercare to [facility] - Medication Discharge Medications: Ambulatory Orders Albuterol Sulfate Inhaler - [Ventolin HFA Inhaler -] 2 inh IH Q4H PRN 12/28/12 Divalproex [Depakote -] 250 mg PO DAILY #30 tablet.ec 04/27/20 Divalproex [Depakote -] 500 mg PO HS #30 tablet.ec 04/27/20 Risperidone [Risperdal -] 1 mg PO BID #60 tablet 04/27/20 traZODone HCL [Desyrel -] 50 mg PO HS #30 tablet 04/27/20 Metformin HCl [Glucophage] 500 mg PO BID #60 tablet 04/28/20 - Medication-Assisted Treatment (MAT) Medication-Assisted Treatment (MAT): No - Discharge Instructions Diet, activity, other medical instructions: Diet:NCS Activity:oob ad charlene Other medical instructions:Follow up with PCP at [facility] for medical management. - Diagnosis (1) Obesity Status: Chronic (2) Alcohol dependence Status: Chronic (3) Cannabis dependence Status: Chronic (4) Asthma Status: Chronic (5) Cocaine dependence Status: Chronic - Follow-up Referral Minutes to complete discharge: 25 - AMA Did Patient Leave Against Medical Advice: No Additional Comments: Pt reports primary care at [facility]. Instructed to follow up with PCP. [facility] Rx for Metformin 500 mg po BID #60 electronically sent to [facility] for pepper picker.
== END 2020-04-28 08:52 | disposition home or self-care (01) | DRG 772 ==
LOC: YASAS 13:06 → Y3E 13:07
PROVIDERS: ADMIT Allergy & Immunology; ATTEND Allergy & Immunology
PROC: HZ42ZZZ Group Counseling for Substance Abuse Treatment, Cognitive-Behavioral (ICD-10-PCS; principal; 2020-04-14)
DX: F10.20 Alcohol dependence, uncomplicated (principal); F14.20 Cocaine dependence, uncomplicated; F12.20 Cannabis dependence, uncomplicated; F17.210 Nicotine dependence, cigarettes, uncomplicated; F25.9 Schizoaffective disorder, unspecified; F31.9 Bipolar disorder, unspecified; J45.909 Unspecified asthma, uncomplicated; E66.9 Obesity, unspecified; Z68.30 Body mass index [BMI] 30.0-30.9, adult; Z56.0 Unemployment, unspecified; Z91.013 Allergy to seafood
CPT/HCPCS: 82962; J2794

== ENCOUNTER 2022-11-16 12:37 | Inpatient (IN) | payer OTHER ==
[2022-11-16 12:58] VITALS: BMI 26.4
[2022-11-16] MEDS ORDERED: MAGNESIUM HYDROX 2400MG/30ML ORAL SUSPENSION 30 ML CUP PO PRN (13:55)
[2022-11-16] MEDS ORDERED: DICYCLOMINE HCL 10 MG CAPSULE PO PRN (13:55)
[2022-11-16] MEDS ORDERED: METHOCARBAMOL 500 MG TABLET PO PRN (13:55)
[2022-11-16] MEDS ORDERED: IBUPROFEN 600 MG TABLET (FP) PO PRN (13:55)
[2022-11-16] MEDS ORDERED: guaiFENesin 600 MG TABLET.ER (FP) PO PRN (13:55)
[2022-11-16] MEDS ORDERED: LOPERAMIDE HCL 2 MG CAPSULE PO PRN (13:55)
[2022-11-16] MEDS ORDERED: chlordiazePOXIDE HCL 25 MG CAPSULE PO PRN (13:55)
[2022-11-16] MEDS ORDERED: MAG HYDROX/AL HYDROX/SIMETH 30 ML UNIT-DOSE CUP PO PRN (13:55)
[2022-11-16] MEDS ORDERED: ONDANSETRON *ODT* 4 MG TABLET SL PRN (13:55)
[2022-11-16] MEDS ORDERED: NALOXONE HCL (KLOXXADO) 8 MG SPRAY NS PRN (13:55)
[2022-11-16] MEDS ORDERED: BISMUTH SUBSALICYLATE 262 MG/15 ML BTL PO PRN (13:55)
[2022-11-16] MEDS ORDERED: hydrOXYzine PAMOATE 25 MG CAPSULE (FP) PO PRN (13:55)
[2022-11-16] MEDS ORDERED: POLYETHYLENE GLYCOL (HEALTHYLAX) 3350 17 GM PACKET PO PRN (13:55)
[2022-11-16] MEDS ORDERED: BENZONATATE 200 MG CAPSULE PO PRN (13:55)
[2022-11-16] MEDS ORDERED: ACETAMINOPHEN 325 MG TABLET (FP) PO PRN (13:55)
[2022-11-16] MEDS ORDERED: NICOTINE 10 MG CARTRIDGE (INHALER) IH PRN (13:55)
[2022-11-16] MEDS ORDERED: BENZOCAINE/MENTHOL (CHLORASEPTIC ) LOZENGE MM PRN (13:55)
[2022-11-16] MEDS ORDERED: NALOXONE HCL 0.4 MG/ML VIAL IM PRN (13:55)
[2022-11-16] MEDS ORDERED: IBUPROFEN 400 MG TABLET (FP) PO PRN (13:55)
[2022-11-16] MEDS ORDERED: ALBUTEROL SO4 HFA INHALER IH PRN (13:58)
[2022-11-16] MEDS: NICOTINE 7 MG/24 HOURS TOPICAL PATCH TD SCH (15:10)
[2022-11-16] MEDS: PRENATAL VITAMINS W/ FOLIC ACID TABLET (FP) PO SCH (15:10)
[2022-11-16] MEDS: chlordiazePOXIDE HCL 25 MG CAPSULE PO SCH ×2 (17:26→22:13)
[2022-11-16] MEDS: metFORMIN HCL 500 MG TABLET (FP) PO SCH (17:26)
[2022-11-16] MEDS: MELATONIN 5 MG TABLETS PO SCH (22:12)
[2022-11-16] MEDS: THIAMINE HCL 100 MG TABLET (FP) PO SCH (22:13)
[2022-11-17] MEDS: chlordiazePOXIDE HCL 25 MG CAPSULE PO SCH ×4 (05:22→22:19)
[2022-11-17] MEDS: metFORMIN HCL 500 MG TABLET (FP) PO SCH ×2 (06:09→17:29)
[2022-11-17] MEDS: NICOTINE 7 MG/24 HOURS TOPICAL PATCH TD SCH (10:37)
[2022-11-17] MEDS: PRENATAL VITAMINS W/ FOLIC ACID TABLET (FP) PO SCH (10:37)
[2022-11-17 10:54] LABS: HEMATOCRIT 40.9 % (32.4-45.2); HEMOGLOBIN 14.5 GM/dL (10.7-15.3); MCH 32.9 pg (25.7-33.7); MCHC 35.4 g/dl (32.0-36.0); MEAN PLT VOLUME 9.9 fl (7.5-11.1); PLATELET COUNT 251 10^3/uL (134-434); RDW 13.1 % (11.6-15.6); WHITE BLOOD COUNT 5.8 K/mm3 (4.0-10.0)
[2022-11-17 11:42] LABS: CALCIUM 9.4 mg/dL (8.5-10.1)
[2022-11-17 11:43] LABS: ALBUMIN 3.6 g/dl (3.4-5.0); BLOOD UREA NITROGEN 9.5 mg/dL (7-18)
[2022-11-17 11:46] LABS: CREATININE 0.9 mg/dL (0.55-1.3)
[2022-11-17 11:48] LABS: BILIRUBIN,TOTAL 0.3 mg/dL (0.2-1)
[2022-11-17] MEDS: traZODone HCL 50 MG TABLET (FP) PO SCH (22:19)
[2022-11-17] MEDS: risperiDONE 1 MG TABLET PO SCH (22:19)
[2022-11-17] MEDS: MELATONIN 5 MG TABLETS PO SCH (22:19)
[2022-11-17] MEDS: DIVALPROEX SODIUM 500 MG TABLET E.C. PO SCH (22:19)
[2022-11-17] MEDS: THIAMINE HCL 100 MG TABLET (FP) PO SCH (22:20)
[2022-11-18] MEDS: chlordiazePOXIDE HCL 25 MG CAPSULE PO SCH ×4 (05:15→22:31)
[2022-11-18] MEDS: metFORMIN HCL 500 MG TABLET (FP) PO SCH ×2 (06:07→17:24)
[2022-11-18] MEDS: NICOTINE 7 MG/24 HOURS TOPICAL PATCH TD SCH (10:23)
[2022-11-18] MEDS: risperiDONE 1 MG TABLET PO SCH ×2 (10:23→22:31)
[2022-11-18] MEDS: PRENATAL VITAMINS W/ FOLIC ACID TABLET (FP) PO SCH (10:23)
[2022-11-18] MEDS: traZODone HCL 50 MG TABLET (FP) PO SCH (22:30)
[2022-11-18] MEDS: MELATONIN 5 MG TABLETS PO SCH (22:31)
[2022-11-18] MEDS: THIAMINE HCL 100 MG TABLET (FP) PO SCH (22:31)
[2022-11-18] MEDS: DIVALPROEX SODIUM 500 MG TABLET E.C. PO SCH (22:31)
[2022-11-19] MEDS ORDERED: chlordiazePOXIDE HCL 10 MG CAPSULE PO PRN
[2022-11-19] MEDS: chlordiazePOXIDE HCL 10 MG CAPSULE PO SCH ×2 (05:16→10:19)
[2022-11-19] MEDS: metFORMIN HCL 500 MG TABLET (FP) PO SCH (06:07)
[2022-11-19] MEDS: NICOTINE 7 MG/24 HOURS TOPICAL PATCH TD SCH (10:18)
[2022-11-19] MEDS: PRENATAL VITAMINS W/ FOLIC ACID TABLET (FP) PO SCH (10:18)
[2022-11-19] MEDS: risperiDONE 1 MG TABLET PO SCH (10:19)
[2022-11-19 12:38] VITALS: BP 111/60; PULSE 77; RESP 17; TEMP 98
[2022-11-20] MEDS ORDERED: chlordiazePOXIDE HCL 10 MG CAPSULE PO SCH (05:00)
[2022-11-20] MEDS ORDERED: DIVALPROEX SODIUM 500 MG TABLET E.C. PO SCH (10:00)
[2022-11-21] MEDS ORDERED: chlordiazePOXIDE HCL 10 MG CAPSULE PO ONE (05:00)
== END 2022-11-19 02:08 | disposition left against medical advice (07) | DRG 770 ==
LOC: YASAS 12:37 → Y3N 15:12
PROVIDERS: ADMIT Allergy & Immunology; ATTEND Surgery
PROC: HZ2ZZZZ Detoxification Services for Substance Abuse Treatment (ICD-10-PCS; principal; 2022-11-16)
DX: F10.230 Alcohol dependence with withdrawal, uncomplicated (principal); F14.20 Cocaine dependence, uncomplicated; F12.20 Cannabis dependence, uncomplicated; F17.210 Nicotine dependence, cigarettes, uncomplicated; F25.9 Schizoaffective disorder, unspecified; F31.9 Bipolar disorder, unspecified; F19.24 Other psychoactive substance dependence with psychoactive substance-induced mood disorder; G47.00 Insomnia, unspecified; J45.909 Unspecified asthma, uncomplicated; E11.9 Type 2 diabetes mellitus without complications; Z79.84 Long term (current) use of oral hypoglycemic drugs; Z91.199 Patient's noncompliance with other medical treatment and regimen due to unspecified reason
CPT/HCPCS: 36415; 80053; 80164; 81025; 82140; 82962; 85027; 86780; 87811; C9803-CS; U0003; U0005